=== PATIENT | male | born 1950 | race Caucasian/White ===

== ENCOUNTER 2016-12-25 08:51 | Emergency (ER) | payer MEDICARE ==
[2016-12-25] MEDS ORDERED: Meclizine TAB* 12.5 MG PO ONE (09:43)
[2016-12-25 10:08] LABS: Hematocrit 40 % (42-52); Hemoglobin 13.5 g/dl (14.0-18.0); Mean Corpuscular HGB Conc 34 g/dl (31-36); Mean Corpuscular Hemoglobin 29 pg (27-31); Mean Corpuscular Volume 85 fL (80-94); Mean Platelet Volume 8 um3 (7.4-10.4); Red Blood Count 4.63 10^6/ul (4.0-5.4); Red Cell Distribution Width 14 % (10.5-15); White Blood Count 5.1 10^3/ul (3.5-10.8)
--- NOTE | 2016-12-25 10:11 | ED ---
Dizziness - HPI Summary HPI Summary: Pt woke this morning with dizziness - worse w/ lying flat - better with being upright or even reclined just not totally supine. Associated sx are dull/aching CP x 30 mins (does not feel like previous cardiac pain - did not take nitro), "little sweating", nausea w/o vomiting. Reports he was hiking yesterday and not a big fan of heights but didn't experience dizziness while hiking. And although he runs daily, felt the hike was more physically demanding than his routine exercise. Admits he may not have had enough water yesterday as well. No more caffeine than usual (2 c coffee per day) and no more ETOH than usual - had champagne last night. H/o stent placement in 2010 - no issues since. Last stress test was [address] Medina - [facility]. Pt explains he had this as he's had lightheadedness intermittently over the past [address] Medina did not feel this is cardiac in nature. He takes metoprolol, statin, ASA, ramipril. GERD - well controlled. Takes protonix. No h/o GI bleed/ulcer or anemia. Denies ab pain, hematochezia, melena stools. Prostate "issue" - takes flomax. No changes in urinary pattern to report. - History Of Current Complaint Chief Complaint: EDChestPainROMI Stated Complaint: LIGHT HEADED Time Seen by Provider: 12/25/16 09:18 Hx Obtained From: Patient - Allergies/Home Medications Allergies/Adverse Reactions: Allergies Allergy/AdvReac Type Severity Reaction Status Date / Time Penicillins [PCN] Allergy Unknown Verified 09/26/15 12:11 Reaction Details PMH/Surg Hx/FS Hx/Imm Hx Previously Healthy: Yes Endocrine/Hematology History: Reports: Hx Thyroid Disease - partial thyroidectomy Denies: Hx Anticoagulant Therapy - ASA daily, Hx Blood Disorders, Hx Diabetes , Hx Anemia, Hx Unexplained Bleeding Cardiovascular History: Reports: Hx Angina, Hx Coronary Artery Disease, Hx Hypercholesterolemia, Hx Hypertension, Hx Myocardial Infarction - 2010 - stent Denies: Hx Valvular Heart Disease Respiratory History: Reports: Hx Asthma Denies: Hx Chronic Obstructive Pulmonary Disease (COPD) GI History: Reports: Hx Gastroesophageal Reflux Disease, Hx Hiatal Hernia Denies: Hx Gastrointestinal Bleed, Hx Ulcer History: Reports: Other Problems/Disorders - prostate issue Musculoskeletal History: Reports: Hx Arthritis Sensory History: Reports: Hx Contacts or Glasses Opthamlomology History: Reports: Hx Contacts or Glasses Neurological History: Reports: Other Neuro Impairments/Disorders - numbness/ tingling intermittently to right foot Psychiatric History: Reports: Hx Depression - Surgical History Surgery Procedure, Year, and Place: Appendix removal, cardiac catheterization, hernia repair x2, Partial thyroid removal Infectious Disease History: No Infectious Disease History: Denies: Traveled Outside the [place] in Last 30 Days - Family History Known Family History: Positive: Cardiac Disease, Respiratory Disease, Other - ALZHEIMERS - Social History Alcohol Use: Daily Alcohol Amount: 2 glasses of wine Hx Substance Use: Yes Substance Use Type: Reports: Marijuana Hx Tobacco Use: Yes Smoking Status (MU): Former Smoker Type: Cigarettes Review of Systems Constitutional: Negative Negative: Fever, Chills, Fatigue Negative: Photophobia ENT: Negative Negative: Sore Throat, Ear Ache, Nasal Discharge Cardiovascular: Other - see HPI Respiratory: Negative Negative: Shortness Of Breath, Cough Positive: Nausea. Negative: Abdominal Pain, Vomiting, Diarrhea Positive: no symptoms reported Musculoskeletal: Negative Skin: Negative Neurological: Other - see HPI Negative: Headache, Weakness, Paresthesia, Numbness, Syncope, Slurred Speech Psychological: Normal - concerned All Other Systems Reviewed And Are Negative: Yes Physical Exam Triage Information Reviewed: Yes Vital Signs On Initial Exam: Initial Vitals Temp Pulse Resp BP Pulse Ox 96.9 F 62 16 148/78 99 12/25/16 08:53 12/25/16 08:53 12/25/16 08:53 12/25/16 08:53 12/25/16 08:53 Vital Signs Reviewed: Yes Appearance: Positive: Well-Appearing, No Pain Distress, Well-Nourished Skin: Positive: Warm, Dry Head/Face: Positive: Normal Head/Face Inspection - Sinuses NTTP Eyes: Positive: Normal, EOMI, JOHAN, Conjunctiva Clear ENT: Positive: Normal ENT inspection, Hearing grossly normal, Pharynx normal, TMs normal. Negative: Nasal congestion, Nasal drainage, Tonsillar swelling, Tonsillar exudate Dental: Negative: Abscess @ Neck: Positive: Supple, Nontender, No Lymphadenopathy Respiratory/Lung Sounds: Positive: Clear to Auscultation, Breath Sounds Present. Negative: Rales, Rhonchi, Subcutaneous Emphysema, Stridor, Tracheal Deviation, Wheezes Cardiovascular: Positive: Normal, RRR, Pulses are Symmetrical in both Upper and Lower Extremities, S1, S2. Negative: Murmur, Rub, Leg Edema Left, Leg Edema Right Abdomen Description: Positive: Nontender, Soft Bowel Sounds: Positive: Present Musculoskeletal: Positive: Normal, Strength/ROM Intact Neurological: Positive: Sensory/Motor Intact, Alert, Oriented to Person Place, Time, CN Intact II-III, [place] Test - Lt side, Facial Symmetry, Speech Normal. Negative: Pronator Drift Present Psychiatric: Positive: Normal - concerned but calm - [place] Coma Scale Coma Scale Total: 15 Diagnostics - Vital Signs Vital Signs Temp Pulse Resp BP Pulse Ox 12/25/16 09:14 97.8 F 62 16 140/84 97 12/25/16 09:13 66 140/84 12/25/16 09:12 59 9 140/84 99 12/25/16 09:11 60 133/79 12/25/16 09:10 58 9 133/79 98 12/25/16 09:07 62 99 12/25/16 08:53 96.9 F 62 16 148/78 99 - Laboratory Result Diagrams: 12/25/16 10:00 12/25/16 10:00 Lab Statement: Any lab studies that have been ordered have been reviewed, and results considered in the medical decision making process. Re-Evaluation - Re-Evaluation First Eval Change: Improved - dizziness improved some, not completely resolved Dizzy Course/Dx - Diagnoses Provider Diagnoses: BPPV (benign paroxysmal positional vertigo) Discharge - Discharge Plan Condition: Stable Disposition: HOME Prescriptions: Meclizine TAB* [Antivert 12.5 TAB*] 25 mg PO TID PRN #15 tab PRN Reason: Vertigo Patient Education Materials: Benign Paroxysmal Positional Vertigo (ED) Referrals: Demi MITCHELL,Donell Marquez [Primary Care Provider] - Additional Instructions: You appear to have Left sided BPPV. See educational information for more details. It is recommended that you seek consult with a vestibular specialist though a physical therapy department in an effort to treat this condition. You may call physical therapy or inquire through your PCP's office for consult and treatment. In the meantime, you have been provided with meclizine, an anti- vertigo medication to dull your symptoms. *If you develop worsening of symptoms, chest pain, shortness of breath, fever, chills, headache, syncope, return to ED
[2016-12-25 10:24] LABS: Albumin 4.1 g/dL (3.2-5.2); BUN/Creatinine Ratio 21.6 (8-20); Calcium 8.9 mg/dL (8.6-10.3); EGFR African American 136.1 (>60); EGFR Non-African American 105.8 (>60); Globulin 2.3 g/dL (2-4); Magnesium 1.7 mg/dL (1.9-2.7); Potassium 4.1 mmol/L (3.5-5.0); Total Bilirubin 0.8 mg/dL (0.2-1.0); Total Protein 6.4 g/dL (6.4-8.9)
[2016-12-25 11:19] LABS: TSH (Thyroid Stimulating Horm) 1.51 mcIU/mL (0.34-5.60)
[2016-12-25 13:13] LABS: Urine Bilirubin Negative (Negative); Urine Glucose Negative (Negative); Urine Nitrite Negative (Negative)
[2016-12-25 14:23] VITALS: BP 143/71
== END 2016-12-25 14:24 | disposition home or self-care (01) ==
LOC: ED 08:51
DX: H81.10 Benign paroxysmal vertigo, unspecified ear (principal); I25.10 Atherosclerotic heart disease of native coronary artery without angina pectoris; E78.00 Pure hypercholesterolemia, unspecified; K21.9 Gastro-esophageal reflux disease without esophagitis; I10 Essential (primary) hypertension; I25.2 Old myocardial infarction
CPT/HCPCS: 36415; 80053; 81003; 83605; 83735; 84443; 84484; 85025; 85379; 93005; 99284; A9270-GY

== ENCOUNTER 2018-01-31 13:39 | Emergency (ER) | payer MEDICARE ==
[2018-01-31] MEDS ORDERED: Famotidine IV* 10 MG/ML 2 ML (20 mg) IV SLOW PU ONE (14:37)
[2018-01-31] MEDS ORDERED: methylPREDNISolone 125 MG* 2 ML VIAL IV ONE (14:37)
[2018-01-31] MEDS ORDERED: diPHENhydraMINE IV* 50 MG/ML 1 ml VIAL (BENADRYL) IV ONE (14:37)
[2018-01-31] MEDS ORDERED: NS 0.9% 1000 ML* 1,000 ML IV ONE (14:38)
[2018-01-31] MEDS ORDERED: diPHENhydraMINE PO* 50 MG ONE (15:11)
[2018-01-31] MEDS ORDERED: diPHENhydraMINE PO* 50 MG PO ONE (15:11)
--- NOTE | 2018-01-31 15:54 | ED ---
Allergic Reaction/Systemic - HPI Summary HPI Summary: Patient is a 67-year-old M presenting to the ED with possible allergic reaction. He endorses eating tuna fish approximately 3 hours PUBLIC[employer] WR[employer]. He states he is allergic to shellfish and swordfish, but has never had an issue with tunafish. He ate the sandwich from [employer]. He states this happened once before when he ate shellfish and he develop swelling in his lips which slowly progressed to swelling in the bilateral cheeks without throat involvement. He denies any shortness of breath or wheezing. He denies any throat pain, however states he has a "tickle in his throat." He is generally an otherwise healthy. He states he has an EpiPen that was given to him, however he does not use it as severe that it was out of date since he obtained it several years ago. Denies any other concerns at this time. Denies any itching or erythema around the throat or cheeks. - History of Current Complaint Chief Complaint: EDAllergicReaction Time Seen by Provider: 01/31/18 13:50 Hx Obtained From: Patient Onset/Duration: Gradual Onset Timing: Constant Severity Initially: Moderate Severity Currently: Moderate Pain Intensity: 0 Pain Scale Used: 0-10 Numeric Location: Diffuse Character: Swelling Associated Signs And Symptoms: Positive: Other: - swelling to the lips. Negative: Difficulty Breathing, Hoarseness, Lightheadedness, Throat Tightening, Vomiting - Related Hx Possible Reaction To: Unknown - Allergies/Home Medications Allergies/Adverse Reactions: Allergies Allergy/AdvReac Type Severity Reaction Status Date / Time fish derived Allergy Swelling Verified 01/31/18 13:48 MS Penicillins [PCN] Allergy Unknown Verified 09/26/15 12:11 Reaction Details Penicillins Allergy Unknown Verified 01/31/18 13:48 Reaction Details shellfish derived Allergy Swelling Verified 01/31/18 13:48 Xdtelix-Jeg-Afe Reductase Allergy See Comment Verified 01/28/18 15:57 Inhibitor Tetracyclines Allergy See Comment Verified 01/28/18 15:57 PMH/Surg Hx/FS Hx/Imm Hx Previously Healthy: Yes Endocrine/Hematology History: Reports: Hx Thyroid Disease - partial thyroidectomy Denies: Hx Anticoagulant Therapy - ASA daily, Hx Blood Disorders, Hx Diabetes , Hx Anemia, Hx Unexplained Bleeding Cardiovascular History: Reports: Hx Angina - not recent, Hx Coronary Artery Disease, Hx Hypercholesterolemia, Hx Hypertension, Hx Myocardial Infarction - 2011 - stent Denies: Hx Valvular Heart Disease Respiratory History: Reports: Hx Asthma Denies: Hx Chronic Obstructive Pulmonary Disease (COPD) GI History: Reports: Hx Gastroesophageal Reflux Disease, Hx Hiatal Hernia Denies: Hx Gastrointestinal Bleed, Hx Ulcer History: Reports: Other Problems/Disorders - prostate issue Musculoskeletal History: Reports: Hx Arthritis Sensory History: Reports: Hx Contacts or Glasses Opthamlomology History: Reports: Hx Contacts or Glasses Neurological History: Reports: Other Neuro Impairments/Disorders - numbness/ tingling intermittently to right foot Psychiatric History: Reports: Hx Depression - Surgical History Surgery Procedure, Year, and Place: Appendix removal, cardiac catheterization, hernia repair x2, Partial thyroid removal - Immunization History Hx Pertussis Vaccination: No Immunizations Up to Date: Yes Infectious Disease History: No Infectious Disease History: Denies: Traveled Outside the [place] in Last 30 Days - Family History Known Family History: Positive: Cardiac Disease, Respiratory Disease, Other - [place]HEIMERS - Social History Occupation: Unemployed Lives: Alone Alcohol Use: Daily Alcohol Amount: 2 glasses of wine Hx Substance Use: Yes Substance Use Type: Reports: Marijuana Substance Use Comment - Amount & Last Used: less,rare. Hx Tobacco Use: Yes Smoking Status (MU): Former Smoker Type: Cigarettes Length of Time of Smoking/Using Tobacco: OFF AND ON SINCE AGE 22. sTOPPED OFF AND ON. Have You Smoked in the Last Year: No Review of Systems Constitutional: Negative Negative: Fever, Chills, Fatigue, Skin Diaphoresis Negative: Sore Throat Negative: Palpitations, Chest Pain Negative: Shortness Of Breath, Cough Negative: Abdominal Pain, Vomiting, Diarrhea, Nausea Genitourinary: Negative Positive: no symptoms reported, see HPI Positive: Other - swelling to the bilateral lips Neurological: Negative All Other Systems Reviewed And Are Negative: Yes Physical Exam Triage Information Reviewed: Yes Vital Signs On Initial Exam: Initial Vitals Temp Pulse Resp BP Pulse Ox 97.7 F 74 16 118/63 97 01/31/18 13:48 01/31/18 13:48 01/31/18 13:48 01/31/18 13:48 01/31/18 13:48 Vital Signs Reviewed: Yes Appearance: Positive: Well-Appearing, Well-Nourished Skin: Positive: Warm, Skin Color Reflects Adequate Perfusion, Other - swelling to the bilateral lips Head/Face: Positive: Normal Head/Face Inspection Eyes: Positive: EOMI, JOHAN, Conjunctiva Clear ENT: Positive: Pharynx normal, Uvula midline. Negative: Muffled voice Neck: Positive: Supple, No Lymphadenopathy Respiratory/Lung Sounds: Positive: Clear to Auscultation, Breath Sounds Present Cardiovascular: Positive: RRR, Pulses are Symmetrical in both Upper and Lower Extremities Musculoskeletal: Positive: Strength/ROM Intact Neurological: Positive: Sensory/Motor Intact, Alert, Oriented to Person Place, Time, Speech Normal Psychiatric: Positive: Normal, Affect/Mood Appropriate AVPU Assessment: Alert Diagnostics - Vital Signs Vital Signs Temp Pulse Resp BP Pulse Ox 01/31/18 15:00 67 15 96 01/31/18 14:00 72 13 94 01/31/18 13:54 72 16 96 01/31/18 13:48 97.7 F 74 16 118/63 97 - Laboratory Lab Statement: Any lab studies that have been ordered have been reviewed, and results considered in the medical decision making process. Allergic Reaction Course/Dx - Course Course Of Treatment: During the course of treatment, the patient is evaluated for allergic reaction. He is allergic to shellfish, however it it tunafish sandwiched today. He endorses swelling to the left upper lip which is now extending over into the right upper lip. He states he has had this before which slowly progressed to swelling in the bilateral legs as well as the cheeks. No airway involvement in the past or current. He continues to deny any shortness of breath or difficulty with WOB. He appears well, nontoxic, vital signs are stable and is continuing to talk without difficulty. He is discharged with prednisone and will continue benadryl. - Diagnoses Provider Diagnoses: Allergic reaction Discharge - Sign-Out/Discharge Documenting (check all that apply): Patient Departure - Discharge Plan Condition: Stable Disposition: HOME Prescriptions: predniSONE TAB* [Deltasone TAB*] 50 mg PO DAILY #3 tab MDD 1 Referrals: Demi MITCHELL,Donell Marquez [Primary Care Provider] - Additional Instructions: Take prednisone 50 mg (1 tab) once daily in the morning 3 days Benadryl 25 mg up to 4 times daily if continuing to be symptomatic If he develop any worsening swelling, or difficulty breathing or swallowing, return to the ED immediately Ice to the lips may help with swelling - Billing Disposition and Condition Condition: STABLE Disposition: Home
[2018-01-31 17:09] VITALS: BP 149/87
== END 2018-01-31 17:11 | disposition home or self-care (01) ==
LOC: ED 13:39
DX: T78.40XA Allergy, unspecified, initial encounter (principal); R22.0 Localized swelling, mass and lump, head; X58.XXXA Exposure to other specified factors, initial encounter; Z91.013 Allergy to seafood; Z95.5 Presence of coronary angioplasty implant and graft; Z87.898 Personal history of other specified conditions; Z87.891 Personal history of nicotine dependence; Z88.0 Allergy status to penicillin; Z88.3 Allergy status to other anti-infective agents
CPT/HCPCS: 96374; 96375; 99283; A9270-GY; J2930

== ENCOUNTER 2019-03-19 14:03 | Emergency (ER) | payer MEDICARE ==
--- NOTE | 2019-03-19 14:20 | ED ---
HPI Chest Pain - HPI Summary HPI Summary: The patient is a 68 y/o M arriving by ambulance to [facility] with a chief complaint of sudden onset diaphoresis and nausea followed by chest pain this afternoon. He reports that he was washing his car when he broke a sweat and became nauseous. He then developed mid-sternal pressure and dizziness described as a weakness and near syncope. The pressure lasted for approximately 30 minutes until EMS arrived. EMS administered 324mg aspirin en route, which helped to alleviate the pain and nausea. In the ED, he is feeling fatigued, and the chest pain is described as a tightness in the mid-sternal region. Symptoms are rated 1 /10 in severity. He denies any abdominal pain or edema in the lower extremities. He notes that he had similar symptoms to todays event as when he had a DC in 2010, and he had a stent placed in the right coronary artery at this time. He takes a baby aspirin daily. PMHx: CAD, HLD, HTN, thyroid disease, GERD. FHx: cardiac disease. Former smoker, occasional EtOH, occasional marijuana use. Medications reviewed. Allergies noted. - History of Current Complaint Time Seen by Provider: 03/19/19 14:09 Hx Obtained From: Patient Onset/Duration: Started Minutes Ago, Still Present Timing: Lasting Minutes - 30 Initial Severity: Moderate Current Severity: Mild Pain Intensity: 1 Pain Scale Used: 0-10 Numeric Chest Pain Location: Mid Sternal Chest Pain Radiates: No Character: Pressure/Squeezing, Tightness Aggravating Factor(s): Nothing Alleviating Factor(s): Medication - 324mg ASA by EMS Associated Signs and Symptoms: Positive: Chest Pain, Weakness, Dizziness - near syncope, Diaphoresis, Nausea, Other: - fatigue. Negative: Abdominal Pain, Edema - Additional Pertinent History Primary Care Physician: [id number] - Allergy/Home Medications Allergies/Adverse Reactions: Allergies Allergy/AdvReac Type Severity Reaction Status Date / Time fish derived Allergy Swelling Verified 03/19/19 14:12 Penicillins Allergy Unknown Verified 03/19/19 14:12 Reaction Details shellfish derived Allergy Swelling Verified 03/19/19 14:12 [id number] Reductase Allergy See Comment Verified 03/19/19 14:12 Inhibitor Tetracyclines Allergy See Comment Verified 03/19/19 14:12 Home Medications: Home Medications Amlodipine Besylate [Amlodipine 2.5 mg tab] 2.5 mg PO DAILY 03/19/19 [History Confirmed 03/19/19] EPINEPHrine [Epinephrine] 1 dose SUBCUT SEE INSTRUCTIONS PRN 03/19/19 [History Confirmed 03/19/19] Rosuvastatin Calcium 20 mg PO DAILY 03/19/19 [History Confirmed 03/19/19] Sildenafil Citrate 50 mg PO DAILY PRN 03/19/19 [History Confirmed 03/19/19] predniSONE TAB* [Deltasone 10 MG TAB*] 10 - 20 mg PO DAILY 03/19/19 [History Confirmed 03/19/19] PMH/Surg Hx/FS Hx/Imm Hx Endocrine/Hematology History: Reports: Hx Thyroid Disease - partial thyroidectomy Denies: Hx Anticoagulant Therapy - ASA daily, Hx Blood Disorders, Hx Diabetes , Hx Anemia, Hx Unexplained Bleeding Cardiovascular History: Reports: Hx Angina - not recent, Hx Coronary Artery Disease, Hx Hypercholesterolemia, Hx Hypertension, Hx Myocardial Infarction - 2010 - stent Denies: Hx Valvular Heart Disease Respiratory History: Reports: Hx Asthma Denies: Hx Chronic Obstructive Pulmonary Disease (COPD) GI History: Reports: Hx Gastroesophageal Reflux Disease, Hx Hiatal Hernia Denies: Hx Gastrointestinal Bleed, Hx Ulcer History: Reports: Other Problems/Disorders - prostate issue Musculoskeletal History: Reports: Hx Arthritis Sensory History: Reports: Hx Contacts or Glasses Opthamlomology History: Reports: Hx Contacts or Glasses Neurological History: Reports: Other Neuro Impairments/Disorders - numbness/ tingling intermittently to right foot Psychiatric History: Reports: Hx Depression - Surgical History Surgical History: Yes Surgery Procedure, Year, and Place: Appendix removal, cardiac catheterization, hernia repair x2, Partial thyroid removal, right coronary stent placed 2010 [facility] [place] - Family History Known Family History: Positive: Cardiac Disease, Respiratory Disease, Other - AL[place]HEIMERS - Social History Alcohol Use: Occasionally Alcohol Amount: 2 glasses of wine Hx Substance Use: Yes Substance Use Type: Reports: Marijuana Substance Use Comment - Amount & Last Used: less,rare. Hx Tobacco Use: Yes Smoking Status (MU): Former Smoker Type: Cigarettes Length of Time of Smoking/Using Tobacco: OFF AND ON SINCE AGE 22. sTOPPED OFF AND ON. Have You Smoked in the Last Year: No Review of Systems Positive: Fatigue Positive: Chest Pain - mid-sternal pressure and tightness Positive: Nausea - resolved. Negative: Abdominal Pain Negative: Edema Neurological: Other - dizziness, near syncope Positive: Weakness All Other Systems Reviewed And Are Negative: Yes Physical Exam - Summary Physical Exam Summary: VITAL SIGNS: Reviewed. GENERAL: Patient is a well-developed and nourished male who is lying comfortable in the stretcher. Patient is not in any acute respiratory distress. HEAD AND FACE: No signs of trauma. No ecchymosis, hematomas or skull depressions. No sinus tenderness. EYES: PERRLA, EOMI x 2, No injected conjunctiva, no nystagmus. EARS: Hearing grossly intact. Ear canals and tympanic membranes are within normal limits. MOUTH: Oropharynx within normal limits. NECK: Supple, trachea is midline, no adenopathy, no JVD, no carotid bruit, no c- spine tenderness, neck with full ROM. CHEST: Symmetric, no tenderness at palpation. LUNGS: Clear to auscultation bilaterally. No wheezing or crackles. CVS: Regular rate and rhythm, S1 and S2 present, no murmurs or gallops appreciated. ABDOMEN: Soft, non-tender. No signs of distention. No rebound, no guarding, and no masses palpated. Bowel sounds are normal. EXTREMITIES: FROM in all major joints, no edema, no cyanosis or clubbing. NEURO: Alert and oriented x 3. No acute neurological deficits. Speech is normal and follows commands. SKIN: Dry and warm. Triage Information Reviewed: Yes Vital Signs Reviewed: Yes Procedures - Sedation Patient Received Moderate/Deep Sedation with Procedure: No Diagnostics - Laboratory Result Diagrams: 03/19/19 14:24 03/19/19 14:24 Lab Statement: Any lab studies that have been ordered have been reviewed, and results considered in the medical decision making process. - Radiology Chest X-Ray Radiology Interpretation Completed By: Radiologist Summary of Radiographic Findings: Impression: No active cardiopulmonary disease is noted. ED physician has reviewed this report. - EKG 1404 Cardiac Rate: NL - 65 BPM EKG Rhythm: Sinus Rhythm Summary of EKG Findings: EKG at 1404 reveals normal sinus rhythm at 65 BPM. T- wave inversions in III. No ST elevations. ED physician has reviewed and interpreted this EKG. Re-Evaluation - Re-Evaluation First Eval Re-Evaluation Time: 15:20 Change: Improved Comment: He is feeling better. We discussed results thus far. Second Eval Re-Evaluation Time: 17:25 Comment: Patient does not want to wait for repeat troponin. He would like to leave AMA. We discussed all the risks and benefits of leaving AMA, and he would not like to stay. Chest Pain Course/Dx - Course Assessment/Plan: This patient is a 68-year-old male who presents to the emergency department with a chief complaint of chest pain, dizziness, diaphoresis, and a feeling that he is going to pass out. Blood work without any significant abnormality. The first troponin is 0.00. Urinalysis negative for UTI. First EKG shows normal sinus rhythm without any ST elevations. Chest x-ray impression: No active cardiopulmonary disease. Patient was given aspirin, and he continues to be asymptomatic. Heart score is equal to 2. Patient doesnt want to wait for the second troponin. Patient requested discharge home. I extensively discussed with the patient the benefits and risks of leaving AMA. I also discussed the alternatives to leaving AMA, however, the patient still insists to leave the hospital AMA. The patient is clinically sober, free from distracting injury, appears to have intact insight and judgment and reason and in my opinion has the capacity to make decisions. Patient has full capacity and is cognitively intact. The patient presents with chest pain, I have explained that I am concerned with these symptoms and may represent ACS. The patient verbalizes understanding of my concerns. I have also explained the results of the labs and even though they are normal. The primary nurse and the charge nurse also strongly recommended that the patient should not leave AMA. Patient understands the risk of leaving AMA, which includes but is not restricted to . Patient signed the AMA form. Patient was also advised to return to ED if he changes his mind or if the symptoms worsen or other symptoms appear. Patient understands and agrees. Again, I discussed all the findings and test results with the patient. Patient was instructed to return to the emergency room immediately if any of the symptoms return or worsens. Plan of care was discussed with the patient and understands and agrees. All questions were answered at patient satisfaction. There were no further complaints or concerns. Patient signed AMA and he was discharged AMA. - Chest Pain Differential Diagnosis/HQI/PQRI: Acute DC, ACS, Angina, CHF, Chest Wall, GI Disease, Lower Respiratory Infection, Pulmonary Edema - Diagnoses Provider Diagnoses: Chest pain Discharge ED - Sign-Out/Discharge Documenting (check all that apply): Patient Departure - Patient requests to leave against medical advice. - Discharge Plan Condition: Stable Disposition: AGAINST MEDICAL ADVICE Patient Education Materials: Chest Pain (DC) Referrals: Donell Simms MD [Primary Care Provider] - - Billing Disposition and Condition Condition: STABLE Disposition: Against Medical Advice - Attestation Statements Document Initiated by Allyssaibe: Yes Documenting Scribe: Carmina García Provider For Whom Barb is Documenting (Include Credential): Dr. Josué Brantley MD Scribe Attestation: Carmina Chaudhary scribed for Dr. Josué Brantley MD on 03/20/19 at 1143. Scribe Documentation Reviewed: Yes Provider Attestation: The documentation as recorded by the Carmina morales accurately reflects the service I personally performed and the decisions made by me, Dr. Josué Brantley MD Status of Scribe Document: Viewed
[2019-03-19 14:41] LABS: ABS Eosinophils 0.1 10^3/ul (0-0.6); ABS Lymphocytes 0.6 10^3/ul (1.0-4.8); ABS Monocytes 0.6 10^3/ul (0-0.8); ABS Neutrophils 8.7 10^3/ul (1.5-7.7); Eosinophil % 1.4 %; Hematocrit 42 % (42-52); Hemoglobin 14.5 g/dL (14.0-18.0); Mean Corpuscular HGB Conc 34 g/dL (31-36); Mean Corpuscular Hemoglobin 29 pg (27-31); Mean Corpuscular Volume 85 fL (80-94); Mean Platelet Volume 7.8 fL (7.4-10.4); Platelet Count 199 10^3/uL (150-450); Red Blood Count 4.99 10^6 /uL (4.18-5.48); Red Cell Distribution Width 13 % (10-15)
[2019-03-19 14:52] LABS: Activated Partial Thrombo Time 35.4 seconds (26.0-38.0); INR 0.97 (0.82-1.09)
[2019-03-19 14:59] LABS: CKMB ng/mL 3.5 ng/mL (0.6-6.3)
[2019-03-19 15:02] LABS: Albumin 4.4 g/dL (3.2-5.2); Calcium 9.2 mg/dL (8.6-10.3); Magnesium 1.7 mg/dL (1.9-2.7); Potassium 3.9 mmol/L (3.5-5.0); Total Bilirubin 0.7 mg/dL (0.2-1.0)
[2019-03-19 15:08] LABS: Albumin/Globulin Ratio 1.8 (1-3); EGFR African American 114.7 (>60); EGFR Non-African American 94.8 (>60); Globulin 2.5 g/dL (2-4); Total Protein 6.9 g/dL (6.4-8.9)
[2019-03-19 15:29] LABS: TSH (Thyroid Stimulating Horm) 2.56 mcIU/mL (0.34-5.60)
[2019-03-19 17:00] LABS: Urine Appearance Cloudy; Urine Bilirubin Negative (Negative); Urine Blood Negative (Negative); Urine Color Yellow; Urine Glucose Negative (Negative); Urine Ketones Trace (Negative); Urine Nitrite Negative (Negative); Urine Protein Negative (Negative); Urine Specific Gravity 1.025 (1.010-1.030); Urine Urobilinogen Negative (Negative)
[2019-03-19 17:36] VITALS: BP 133/71
== END 2019-03-19 17:39 | disposition left against medical advice (07) ==
LOC: ED 14:03
DX: R07.9 Chest pain, unspecified (principal); E03.9 Hypothyroidism, unspecified; I25.10 Atherosclerotic heart disease of native coronary artery without angina pectoris; I10 Essential (primary) hypertension; K21.9 Gastro-esophageal reflux disease without esophagitis; E78.00 Pure hypercholesterolemia, unspecified; I25.2 Old myocardial infarction; F32.9 Major depressive disorder, single episode, unspecified; Z87.891 Personal history of nicotine dependence; Z95.5 Presence of coronary angioplasty implant and graft; Z90.89 Acquired absence of other organs; Z79.899 Other long term (current) drug therapy; Z88.1 Allergy status to other antibiotic agents; Z88.0 Allergy status to penicillin; Z88.8 Allergy status to other drugs, medicaments and biological substances
CPT/HCPCS: 36415; 71045; 80053; 81003; 82550; 82553; 83605; 83735; 83880; 84443; 84484; 85025; 85610; 85730; 93005; 99284

== ENCOUNTER 2020-04-06 09:54 | Observation (INO) ==
[2020-04-06 11:19] LABS: ABS Basophils 0.1 10^3/ul (0-0.2); ABS Eosinophils 0.2 10^3/ul (0-0.6); ABS Lymphocytes 1.3 10^3/ul (1.0-4.8); ABS Monocytes 0.5 10^3/ul (0-0.8); ABS Neutrophils 3.4 10^3/ul (1.5-7.7); Eosinophil % 3.6 %; Hematocrit 42 % (42-52); Hemoglobin 14.1 g/dL (14.0-18.0); Lymphocyte % 24.5 %; Mean Corpuscular HGB Conc 34 g/dL (31-36); Mean Corpuscular Hemoglobin 29 pg (27-31); Mean Corpuscular Volume 86 fL (80-94); Mean Platelet Volume 7.8 fL (7.4-10.4); Nucleated Red Blood Cells % 0.1; Platelet Count 215 10^3/uL (150-450); Red Blood Count 4.87 10^6 /uL (4.18-5.48); Red Cell Distribution Width 13 % (10-15); White Blood Count 5.4 10^3/uL (3.5-10.8)
[2020-04-06 11:51] LABS: ALT 34 U/L (7-52); AST 27 U/L (13-39); Albumin 4.6 g/dL (3.2-5.2); Albumin/Globulin Ratio 1.9 (1-3); Alkaline Phosphatase 46 U/L (34-104); Anion Gap 8 mmol/L (2-11); BUN/Creatinine Ratio 16.1 (8-20); Blood Urea Nitrogen 14 mg/dL (6-24); CO2 Carbon Dioxide 26 mmol/L (22-32); Calcium 9.4 mg/dL (8.6-10.3); Chloride 103 mmol/L (101-111); EGFR African American 105.3 (>60); Globulin 2.4 g/dL (2-4); Glucose 109 mg/dL (70-100); Potassium 4.2 mmol/L (3.5-5.0); Sodium 137 mmol/L (135-145)
[2020-04-06] MEDS ORDERED: Fluticasone NASAL SPRAY 50MCG 16 gm SPRAY BTL INTRANASAL PRN (13:09)
[2020-04-06] MEDS: Heparin 5000 UNITS/ML 1 mL VIAL SUBCUT SCH ×2 (17:33→22:58)
[2020-04-07] MEDS: Heparin 5000 UNITS/ML 1 mL VIAL SUBCUT SCH ×3 (07:38→20:56)
[2020-04-07] MEDS: CMCS:Rosuvastatin 10 mg TAB (NF) PO SCH (08:34)
[2020-04-07] MEDS: Aspirin EC 81 mg TAB.EC (enteric coated) PO SCH (08:35)
[2020-04-07] MEDS: SELEGILINE TRANSDERM SCH (08:35)
[2020-04-08] MEDS: Heparin 5000 UNITS/ML 1 mL VIAL SUBCUT SCH ×3 (05:29→21:28)
[2020-04-08] MEDS: Aspirin EC 81 mg TAB.EC (enteric coated) PO SCH (08:11)
[2020-04-08] MEDS: CMCS:Rosuvastatin 10 mg TAB (NF) PO SCH (08:12)
[2020-04-08] MEDS: SELEGILINE TRANSDERM SCH (08:12)
[2020-04-09] MEDS: Heparin 5000 UNITS/ML 1 mL VIAL SUBCUT SCH (07:07)
[2020-04-09] MEDS: Aspirin EC 81 mg TAB.EC (enteric coated) PO SCH (11:12)
[2020-04-09] MEDS: CMCS:Rosuvastatin 10 mg TAB (NF) PO SCH (11:13)
[2020-04-09] MEDS: SELEGILINE TRANSDERM SCH (11:13)
[2020-04-09 12:21] VITALS: BP 121/74
== END 2020-04-09 14:13 | disposition home or self-care (01) ==
LOC: ED 09:54 → MEDTELE 09:54
PROVIDERS: ADMIT Internal Medicine; ATTEND Internal Medicine

== ENCOUNTER 2021-08-12 13:20 | Observation (INO) ==
[2021-08-12 13:43] LABS: ABS Eosinophils 0.2 10^3/ul (0-0.6); ABS Lymphocytes 1.2 10^3/ul (1.0-4.8); ABS Monocytes 0.4 10^3/ul (0-0.8); ABS Neutrophils 3.6 10^3/ul (1.5-7.7); Eosinophil % 2.8 %; Hematocrit 41 % (42-52); Hemoglobin 13.9 g/dL (14.0-18.0); Lymphocyte % 22.8 %; Mean Corpuscular HGB Conc 34 g/dL (31-36); Mean Corpuscular Hemoglobin 29 pg (27-31); Mean Corpuscular Volume 84 fL (80-94); Mean Platelet Volume 7.4 fL (7.4-10.4); Nucleated Red Blood Cells % 0.1; Platelet Count 190 10^3/uL (150-450); Red Blood Count 4.81 10^6 /uL (4.18-5.48); Red Cell Distribution Width 14 % (10-15); White Blood Count 5.4 10^3/uL (3.5-10.8)
[2021-08-12 13:49] LABS: INR 0.94 (0.86-1.15)
[2021-08-12 14:30] LABS: Albumin 4.3 g/dL (3.2-5.2); Albumin/Globulin Ratio 1.9 (1-3); Calcium 9.3 mg/dL (8.6-10.3); Globulin 2.3 g/dL (2-4); Potassium 4.1 mmol/L (3.5-5.0); Total Bilirubin 0.5 mg/dL (0.2-1.0); Total Protein 6.6 g/dL (6.4-8.9); eGFR CKD-EPI 93.6 (>60)
[2021-08-12 15:07] LABS: High Sensitivity Troponin 1 Hr 7 pg/mL (<20)
[2021-08-12] MEDS ORDERED: Evolocumab (NF) 140 MG/ML SYRINGE SUBCUT SCH (17:00)
[2021-08-12] MEDS ORDERED: Enoxaparin 40 MG/0.4 ML SYR SUBCUT SCH (17:00)
[2021-08-12 17:06] LABS: HDL Cholesterol 57.9 mg/dL
[2021-08-12] MEDS ORDERED: EPINEPHrine PEN ADULT(NF) 0.3 MG SYRINGE IM PRN (18:41)
[2021-08-13 06:06] LABS: Hematocrit 39 % (42-52); Hemoglobin 13.6 g/dL (14.0-18.0); Mean Corpuscular HGB Conc 35 g/dL (31-36); Mean Corpuscular Hemoglobin 29 pg (27-31); Mean Corpuscular Volume 84 fL (80-94); Mean Platelet Volume 7.4 fL (7.4-10.4); Platelet Count 193 10^3/uL (150-450); Red Blood Count 4.67 10^6 /uL (4.18-5.48); Red Cell Distribution Width 14 % (10-15); White Blood Count 5.9 10^3/uL (3.5-10.8)
[2021-08-13 06:47] LABS: Calcium 9.2 mg/dL (8.6-10.3); Magnesium 1.7 mg/dL (1.9-2.7); Potassium 4.2 mmol/L (3.5-5.0); eGFR CKD-EPI 93.9 (>60)
[2021-08-13] MEDS ORDERED: Magnesium Sulfate 2 gm BAG 2 GM/50 ML BAG IVPB ONE (06:50)
[2021-08-13 07:30] LABS: Ferritin 107.4 ng/mL (24-336)
[2021-08-13] MEDS ORDERED: SELEGILINE TRANSDERM SCH (09:00)
[2021-08-13] MEDS ORDERED: Aspirin EC 81 mg TAB.EC (enteric coated) PO SCH (09:00)
[2021-08-13] MEDS ORDERED: Aminophylline 25 MG/ML VIAL ONE (10:50)
[2021-08-13] MEDS ORDERED: Regadenoson 0.4 MG/5 ML SYRINGE ONE (10:50)
[2021-08-13 11:11] VITALS: BP 115/67
== END 2021-08-13 14:37 | disposition home or self-care (01) ==
LOC: ED 13:20 → EDHOLD 13:20 → MEDTELE 18:47
PROVIDERS: ADMIT Internal Medicine; ATTEND Internal Medicine